=== PATIENT | male | born 1940 | race Caucasian/White ===

== ENCOUNTER 2019-07-04 14:49 | Observation (INO) ==
[2019-07-04] MEDS ORDERED: CLINDAMYCIN INJ 900 MG in PREMIX 1 EACH IV STA (16:22)
[2019-07-04] MEDS ORDERED: CLINDAMYCIN INJ 50 ML IV ONE (16:47)
[2019-07-04 16:55] LABS: Basophils # 0.1 10*3/uL (0.0-0.2); Basophils % 0.6 % (0.0-0.8); Eosinophils # 0.1 10*3/uL (0.0-0.87); Eosinophils % 1.6 % (0.00-10.9); Hematocrit 37.3 VOL% (42.0-52.0); Hemoglobin 11.9 GM/DL (14.0-18.0); Immature Granulocytes % 0.4 %; Immature Granulocytes Absolute 0.03 #; Lymphocytes # 1.2 10*3/uL (1.4-4.0); Lymphocytes % 14.7 % (21.2-54.2); Mean Corpuscular HGB Conc 31.9 GM/DL (32-36); Mean Corpuscular Volume 100.3 FL (87-102); Mean Platelet Volume 10.7 FL (9.6-12.0); Monocytes % 6.1 % (1.7-12.7); Neutrophils % 76.6 % (38.7-73.9); Platelet Count 228 T/CUMM (130-400); Red Blood Count 3.72 MC/CUMM (3.8-5.5); Red Cell Distribution Width 13.8 % (9.3-17.3); White Blood Count 8.1 T/CUMM (4-12)
[2019-07-04 17:06] LABS: INR 0.9; PT Patient Result 10.3 SECS (9.6-12.2); Partial Thromboplastin Time 26.2 SECS (20.8-36.0)
[2019-07-04 18:00] LABS: Sedimentation Rate-Westergren 62 MM/HR (0-20)
[2019-07-04 18:09] LABS: Albumin 2.9 G/DL (3.4-5.0); Bilirubin,Total 1.1 MG/DL (0.2-1.0); Calcium 9.2 MG/DL (8.5-10.1); Osmolality,Calculated 277.3 MOS/KG (273-304); Total Protein 6.8 G/DL (6.4-8.3)
[2019-07-04] MEDS ORDERED: ACETAMINOPHEN 325 MG TABLET PO PRN (20:39)
[2019-07-04] MEDS ORDERED: DOCUSATE SODIUM 100 MG CAPSULE PO PRN (20:39)
[2019-07-04] MEDS ORDERED: LACTULOSE 20 GM/30 ML UDCUP PO PRN (20:39)
[2019-07-04] MEDS ORDERED: ONDANSETRON 4 MG/2 ML VIAL IV PRN (20:39)
[2019-07-04] MEDS ORDERED: AMMONIA INHALANT 1 EACH AMP INH ONE (20:56)
[2019-07-04] MEDS ORDERED: IMIPRAMINE 50 MG TABLET PO SCH (21:00)
[2019-07-04] MEDS: APIXABAN 5 MG TABLET PO SCH (22:57)
[2019-07-04] MEDS: OXYBUTYNIN XL 15 MG TABLET PO SCH (22:57)
[2019-07-04] MEDS: IMIPRAMINE 25 MG TABLET PO SCH (22:58)
[2019-07-04] MEDS: ceFAZolin 1,000 MG in SYRINGE 1 EACH IV SCH (22:59)
[2019-07-04] MEDS: OFLOXACIN 0.3% OPH SOLN 5 ML BOTTLE BOTH EYES SCH (23:02)
[2019-07-04] MEDS: prednisoLONE ACETATE 1% OPH SUSP 5 ML BOTTLE BOTH EYES SCH (23:02)
[2019-07-04] MEDS: BRIMONIDINE/TIMOLOL OPH SOLN 5 ML BOTTLE LEFT EYE SCH (23:02)
[2019-07-04] MEDS: ATROPINE 1 % OPH SOLN 5 ML BOTTLE BOTH EYES SCH (23:02)
[2019-07-04] MEDS: TEMAZEPAM 15 MG CAPSULE PO SCH (23:03)
[2019-07-05 05:26] LABS: Basophils # 0.1 10*3/uL (0.0-0.2); Basophils % 1.2 % (0.0-0.8); Eosinophils # 0.2 10*3/uL (0.0-0.87); Hematocrit 37.5 VOL% (42.0-52.0); Hemoglobin 11.6 GM/DL (14.0-18.0); Immature Granulocytes % 0.3 %; Immature Granulocytes Absolute 0.02 #; Lymphocytes # 1.1 10*3/uL (1.4-4.0); Lymphocytes % 19.2 % (21.2-54.2); Mean Corpuscular HGB Conc 30.9 GM/DL (32-36); Mean Corpuscular Volume 103.6 FL (87-102); Mean Platelet Volume 9.1 FL (9.6-12.0); Monocytes % 6.4 % (1.7-12.7); Neutrophils % 69.9 % (38.7-73.9); Platelet Count 237 T/CUMM (130-400); Red Blood Count 3.62 MC/CUMM (3.8-5.5); Red Cell Distribution Width 13.2 % (9.3-17.3)
[2019-07-05 06:10] LABS: Vitamin B12 1230 PG/ML (211-911)
[2019-07-05] MEDS: ceFAZolin 1,000 MG in SYRINGE 1 EACH IV SCH ×3 (06:10→22:56)
[2019-07-05 06:13] LABS: % Iron Saturation 18.6 % (18-50); Ferritin 210.9 ng/ml (26-388)
[2019-07-05 06:30] LABS: Parathyroid Hormone Intact 54.7 PG/ML (18.4-80.1)
[2019-07-05 06:34] LABS: Sedimentation Rate-Westergren 78 MM/HR (0-20)
[2019-07-05] MEDS: PANTOPRAZOLE 40 MG TABLET PO SCH (09:19)
[2019-07-05] MEDS: OXYBUTYNIN XL 15 MG TABLET PO SCH ×2 (09:19→20:54)
[2019-07-05] MEDS: APIXABAN 5 MG TABLET PO SCH ×2 (09:20→20:54)
[2019-07-05] MEDS: OFLOXACIN 0.3% OPH SOLN 5 ML BOTTLE BOTH EYES SCH ×4 (09:21→20:55)
[2019-07-05] MEDS: prednisoLONE ACETATE 1% OPH SUSP 5 ML BOTTLE BOTH EYES SCH ×4 (09:21→20:55)
[2019-07-05] MEDS: ATROPINE 1 % OPH SOLN 5 ML BOTTLE BOTH EYES SCH ×4 (09:22→20:55)
[2019-07-05] MEDS: BRIMONIDINE/TIMOLOL OPH SOLN 5 ML BOTTLE LEFT EYE SCH ×2 (09:23→20:55)
[2019-07-05 10:44] LABS: Hemoglobin A1 (Alkaline) 96.6 % (96.5-98.5); Hemoglobin A2 (Alkaline) 3.4 % (1.5-3.5)
[2019-07-05] MEDS ORDERED: SKIN HEALING OINT (AQUAPHOR) 50 GM TUBE TOP PRN (14:40)
[2019-07-05] MEDS: IMIPRAMINE 25 MG TABLET PO SCH (20:54)
[2019-07-05] MEDS: TEMAZEPAM 15 MG CAPSULE PO SCH (22:56)
[2019-07-06] MEDS: ceFAZolin 1,000 MG in SYRINGE 1 EACH IV SCH ×2 (05:55→14:36)
[2019-07-06] MEDS: OFLOXACIN 0.3% OPH SOLN 5 ML BOTTLE BOTH EYES SCH ×2 (10:14→14:03)
[2019-07-06] MEDS: APIXABAN 5 MG TABLET PO SCH (10:15)
[2019-07-06] MEDS: BRIMONIDINE/TIMOLOL OPH SOLN 5 ML BOTTLE LEFT EYE SCH (10:15)
[2019-07-06] MEDS: ATROPINE 1 % OPH SOLN 5 ML BOTTLE BOTH EYES SCH ×2 (10:15→14:03)
[2019-07-06] MEDS: prednisoLONE ACETATE 1% OPH SUSP 5 ML BOTTLE BOTH EYES SCH ×2 (10:15→14:03)
[2019-07-06] MEDS: PANTOPRAZOLE 40 MG TABLET PO SCH (10:20)
[2019-07-06] MEDS: OXYBUTYNIN XL 15 MG TABLET PO SCH (12:04)
[2019-07-06 16:21] VITALS: BP 133/78
[2019-07-06] MEDS ORDERED: APIXABAN 5 MG TABLET PO SCH (21:00)
[2019-07-06] MEDS ORDERED: cephALEXin 500 MG CAPSULE PO SCH (21:00)
== END 2019-07-06 17:45 | disposition home or self-care (01) ==
LOC: N.ED 14:49 → N.EDINP 14:49 → N.4E 21:19
PROVIDERS: ADMIT Hospitalist; ATTEND Hospitalist

== ENCOUNTER 2019-08-31 08:55 | Inpatient (IN) ==
[2019-08-31] MEDS ORDERED: SODIUM CHLORIDE 0.9% 1,000 ML IV STA (09:14)
[2019-08-31 09:43] LABS: PT Patient Result 10.6 SECS (9.6-12.2)
[2019-08-31 09:57] LABS: Basophils % 0.3 % (0.0-0.8); Eosinophils % 0.2 % (0.00-10.9); Hematocrit 34.8 VOL% (42.0-52.0); Hemoglobin 11.2 GM/DL (14.0-18.0); Immature Granulocytes % 0.6 %; Immature Granulocytes Absolute 0.08 #; Lymphocytes # 1.4 10*3/uL (1.4-4.0); Lymphocytes % 10.2 % (21.2-54.2); Mean Corpuscular HGB Conc 32.2 GM/DL (32-36); Mean Corpuscular Volume 98.6 FL (87-102); Mean Platelet Volume 9.8 FL (9.6-12.0); Monocytes % 8.6 % (1.7-12.7); Neutrophils % 80.1 % (38.7-73.9); Platelet Count 207 T/CUMM (130-400); Red Blood Count 3.53 MC/CUMM (3.8-5.5); Red Cell Distribution Width 13.5 % (9.3-17.3); White Blood Count 14.2 T/CUMM (4-12)
[2019-08-31 10:09] LABS: Alanine Aminotransferase 31 U/L (16-61); Alkaline Phosphatase 443 U/L (45-117); Amylase 22 U/L (25-115); Aspartate Amino Transferase 35 U/L (0-37); Blood Urea Nitrogen 31 MG/DL (7-18); Calcium 9.2 MG/DL (8.5-10.1); Estimated Glom Filtration Rate 96 ML/MIN; Free T4 (Free Thyroxine) 1.54 NG/DL (0.76-1.46); Glucose 110 MG/DL (74-106); Osmolality,Calculated 275.2 MOS/KG (273-304); Total Protein 7.2 G/DL (6.4-8.3); Troponin I < 0.015 NG/ML (0.00-0.045)
[2019-08-31] MEDS ORDERED: CLINDAMYCIN INJ 900 MG in PREMIX 1 EACH IV STA (10:17)
[2019-08-31 10:23] LABS: Apearance,Urine Slightly Hazy (Clear); Bacteria,Urine Many /HPF (Few); Bilirubin,Urine Negative (Negative); Blood, Urine Negative (Negative); Glucose,Urine (UA) Negative (Negative); Ketones,Urine 20 mg/dL (Negative); Mucus,Urine Occasional /LPF (Occasional); Nitrite,Urine Negative (Negative); Protein,Urine Negative; Urine Color Amber (Yellow); Urine Specific Gravity 1.019 (1.001-1.035); WBC,Urine 1 /HPF (0-6)
[2019-08-31 10:44] LABS: Barbiturates Screen,Urine Negative (Negative); Benzodiazepines Screen,Urine Positive (Negative); Cannabinoid Screen,Urine Negative (Negative); Opiate Screen,Urine Negative (Negative); Phencyclidine Screen,Urine Negative (Negative)
[2019-08-31 11:01] LABS: Sedimentation Rate-Westergren 88 MM/HR (0-20)
[2019-08-31] MEDS ORDERED: ONDANSETRON 4 MG/2 ML VIAL IV PRN (11:51)
[2019-08-31] MEDS ORDERED: LACTULOSE 20 GM/30 ML UDCUP PO PRN (11:51)
[2019-08-31] MEDS ORDERED: ACETAMINOPHEN 325 MG TABLET PO PRN (11:51)
[2019-08-31 12:36] LABS: Risk Ratio 3.42; VLDL CHOLESTEROL 26.4 MG/DL
[2019-08-31] MEDS: SODIUM CHLORIDE 0.9% 1,000 ML IV SCH ×2 (13:45→23:59)
[2019-08-31] MEDS: ENOXAPARIN 40 MG/0.4 ML SYRINGE SUBCUT SCH (13:45)
[2019-08-31] MEDS: CLINDAMYCIN INJ 600 MG in PREMIX 1 EACH IV SCH ×2 (16:07→23:28)
[2019-08-31] MEDS: TEMAZEPAM 15 MG CAPSULE PO SCH (20:57)
[2019-08-31] MEDS: OXYBUTYNIN XL 15 MG TABLET PO SCH (20:57)
[2019-08-31] MEDS: IMIPRAMINE 25 MG TABLET PO SCH (20:57)
[2019-08-31] MEDS: ursodioL 300 MG CAPSULE PO SCH (20:57)
[2019-09-01 06:27] LABS: Basophils % 0.4 % (0.0-0.8); Eosinophils # 0.1 10*3/uL (0.0-0.87); Eosinophils % 1.3 % (0.00-10.9); Hemoglobin 7.8 GM/DL (14.0-18.0); Immature Granulocytes % 0.5 %; Immature Granulocytes Absolute 0.04 #; Lymphocytes # 1.6 10*3/uL (1.4-4.0); Lymphocytes % 19.4 % (21.2-54.2); Mean Corpuscular HGB Conc 32.5 GM/DL (32-36); Mean Platelet Volume 10.1 FL (9.6-12.0); Neutrophils % 65.4 % (38.7-73.9); Platelet Count 162 T/CUMM (130-400); Red Blood Count 2.45 MC/CUMM (3.8-5.5); Red Cell Distribution Width 13.7 % (9.3-17.3); White Blood Count 8.3 T/CUMM (4-12)
[2019-09-01 07:07] LABS: Albumin 2.1 G/DL (3.4-5.0); Bilirubin,Total 1.1 MG/DL (0.2-1.0); Calcium 7.9 MG/DL (8.5-10.1); Osmolality,Calculated 275.8 MOS/KG (273-304); Total Protein 5.4 G/DL (6.4-8.3)
[2019-09-01] MEDS ORDERED: SODIUM CHLORIDE 0.9% 1,000 ML IV PRN (08:16)
[2019-09-01] MEDS: BRIMONIDINE/TIMOLOL OPH SOLN 5 ML BOTTLE LEFT EYE SCH ×3 (08:26→20:29)
[2019-09-01] MEDS: CLINDAMYCIN INJ 600 MG in PREMIX 1 EACH IV SCH ×3 (08:46→23:35)
[2019-09-01] MEDS: PANTOPRAZOLE 40 MG TABLET PO SCH (08:47)
[2019-09-01] MEDS: ursodioL 300 MG CAPSULE PO SCH ×2 (08:47→20:30)
[2019-09-01] MEDS: OXYBUTYNIN XL 15 MG TABLET PO SCH ×2 (08:47→20:30)
[2019-09-01] MEDS: MULTIVITAMIN (CENTRUM) TABLET PO SCH (08:47)
[2019-09-01] MEDS: SODIUM CHLORIDE 0.9% 1,000 ML IV SCH ×2 (08:51→20:30)
[2019-09-01] MEDS: ENOXAPARIN 40 MG/0.4 ML SYRINGE SUBCUT SCH (12:37)
[2019-09-01 18:07] LABS: Hematocrit 35.2 VOL% (42.0-52.0)
[2019-09-01 18:13] LABS: Hemoglobin 11.5 GM/DL (14.0-18.0)
[2019-09-01] MEDS: IMIPRAMINE 25 MG TABLET PO SCH (20:30)
[2019-09-01] MEDS: TEMAZEPAM 15 MG CAPSULE PO SCH (22:17)
[2019-09-02 05:17] LABS: Basophils % 0.6 % (0.0-0.8); Eosinophils # 0.2 10*3/uL (0.0-0.87); Hematocrit 30.3 VOL% (42.0-52.0); Immature Granulocytes % 0.4 %; Immature Granulocytes Absolute 0.02 #; Lymphocytes # 1.2 10*3/uL (1.4-4.0); Lymphocytes % 22.4 % (21.2-54.2); Mean Corpuscular Volume 94.4 FL (87-102); Monocytes % 11.4 % (1.7-12.7); Neutrophils % 61.2 % (38.7-73.9); Platelet Count 126 T/CUMM (130-400); Red Blood Count 3.21 MC/CUMM (3.8-5.5); Red Cell Distribution Width 14.7 % (9.3-17.3); White Blood Count 5.3 T/CUMM (4-12)
[2019-09-02 05:47] LABS: Albumin 2.2 G/DL (3.4-5.0); Calcium 8.1 MG/DL (8.5-10.1); Osmolality,Calculated 281.3 MOS/KG (273-304); Total Protein 5.5 G/DL (6.4-8.3)
[2019-09-02 05:48] LABS: % Iron Saturation 25.6 % (18-50); Ferritin 200.3 ng/ml (26-388)
[2019-09-02 06:25] LABS: Sedimentation Rate-Westergren 64 MM/HR (0-20)
[2019-09-02] MEDS: SODIUM CHLORIDE 0.9% 1,000 ML IV SCH ×3 (06:31→23:23)
[2019-09-02] MEDS: POTASSIUM CHLORIDE 20 MEQ TABLET PO PRN ×3 (08:06→13:23)
[2019-09-02] MEDS: CLINDAMYCIN INJ 600 MG in PREMIX 1 EACH IV SCH ×3 (08:07→23:21)
[2019-09-02 08:57] LABS: Hemoglobin A1 (Alkaline) 97.2 % (96.5-98.5); Hemoglobin A2 (Alkaline) 2.8 % (1.5-3.5)
[2019-09-02] MEDS: OXYBUTYNIN XL 15 MG TABLET PO SCH ×2 (10:07→20:36)
[2019-09-02] MEDS: PANTOPRAZOLE 40 MG TABLET PO SCH ×2 (10:07→20:36)
[2019-09-02] MEDS: ursodioL 300 MG CAPSULE PO SCH ×2 (10:07→20:36)
[2019-09-02] MEDS: MULTIVITAMIN (CENTRUM) TABLET PO SCH (10:08)
[2019-09-02] MEDS: BRIMONIDINE/TIMOLOL OPH SOLN 5 ML BOTTLE LEFT EYE SCH ×2 (10:09→20:36)
[2019-09-02] MEDS: ENOXAPARIN 40 MG/0.4 ML SYRINGE SUBCUT SCH (13:24)
[2019-09-02] MEDS: MENTHOL/ZINC OXIDE OINT 71 GM JAR TOP SCH ×2 (13:25→20:36)
[2019-09-02 18:20] LABS: Folate 13.6 NG/ML (5.4-24.0); Vitamin B12 1093 PG/ML (211-911)
[2019-09-02] MEDS ORDERED: BISACODYL 10 MG SUPP RECTAL ONE (20:16)
[2019-09-02] MEDS: IMIPRAMINE 25 MG TABLET PO SCH (20:35)
[2019-09-02] MEDS ORDERED: POLYETHYLENE GLYCOL POWDER 17 GM PACK PO SCH (21:00)
[2019-09-02] MEDS: TEMAZEPAM 15 MG CAPSULE PO SCH (23:02)
[2019-09-03 05:52] LABS: Basophils % 0.5 % (0.0-0.8); Eosinophils # 0.2 10*3/uL (0.0-0.87); Eosinophils % 2.9 % (0.00-10.9); Hematocrit 30.9 VOL% (42.0-52.0); Hemoglobin 10.1 GM/DL (14.0-18.0); Immature Granulocytes % 0.8 %; Immature Granulocytes Absolute 0.05 #; Lymphocytes # 1.2 10*3/uL (1.4-4.0); Lymphocytes % 18.2 % (21.2-54.2); Mean Corpuscular HGB Conc 32.7 GM/DL (32-36); Mean Corpuscular Volume 96.9 FL (87-102); Mean Platelet Volume 9.8 FL (9.6-12.0); Monocytes % 9.2 % (1.7-12.7); Neutrophils % 68.4 % (38.7-73.9); Platelet Count 149 T/CUMM (130-400); Red Blood Count 3.19 MC/CUMM (3.8-5.5); Red Cell Distribution Width 14.6 % (9.3-17.3); White Blood Count 6.5 T/CUMM (4-12)
[2019-09-03 06:11] LABS: Albumin 1.9 G/DL (3.4-5.0); Bilirubin,Total 1.9 MG/DL (0.2-1.0); Calcium 8.2 MG/DL (8.5-10.1); Osmolality,Calculated 270.8 MOS/KG (273-304); Total Protein 5.1 G/DL (6.4-8.3)
[2019-09-03] MEDS ORDERED: TUBERCULIN SKIN TEST 0.1 ML SYRINGE INTRADERM ONE (09:57)
[2019-09-03] MEDS: OXYBUTYNIN XL 15 MG TABLET PO SCH ×2 (10:05→21:04)
[2019-09-03] MEDS: MULTIVITAMIN (CENTRUM) TABLET PO SCH (10:05)
[2019-09-03] MEDS: FERROUS SULFATE 325 MG TABLET PO SCH (10:05)
[2019-09-03] MEDS: CLINDAMYCIN INJ 600 MG in PREMIX 1 EACH IV SCH (10:06)
[2019-09-03] MEDS: PANTOPRAZOLE 40 MG TABLET PO SCH ×2 (10:06→21:04)
[2019-09-03] MEDS: ursodioL 300 MG CAPSULE PO SCH ×2 (10:06→21:05)
[2019-09-03] MEDS: BRIMONIDINE/TIMOLOL OPH SOLN 5 ML BOTTLE LEFT EYE SCH ×2 (10:09→21:05)
[2019-09-03] MEDS: MENTHOL/ZINC OXIDE OINT 71 GM JAR TOP SCH ×2 (10:09→21:05)
[2019-09-03] MEDS: PIPERACILLIN/TAZOBACTAM 3,375 MG in SODIUM CHLORIDE 0.9% 100 ML IV SCH ×2 (12:59→18:35)
[2019-09-03] MEDS: IMIPRAMINE 25 MG TABLET PO SCH (21:04)
[2019-09-03] MEDS: TEMAZEPAM 15 MG CAPSULE PO SCH (23:00)
[2019-09-04] MEDS: SODIUM CHLORIDE 0.9% 1,000 ML IV SCH ×3 (00:01→09:10)
[2019-09-04] MEDS: PIPERACILLIN/TAZOBACTAM 3,375 MG in SODIUM CHLORIDE 0.9% 100 ML IV SCH ×2 (02:26→09:11)
[2019-09-04 04:43] LABS: Basophils % 0.3 % (0.0-0.8); Eosinophils # 0.2 10*3/uL (0.0-0.87); Eosinophils % 3.2 % (0.00-10.9); Hemoglobin 10.4 GM/DL (14.0-18.0); Immature Granulocytes % 0.4 %; Immature Granulocytes Absolute 0.03 #; Lymphocytes # 1.3 10*3/uL (1.4-4.0); Lymphocytes % 17.6 % (21.2-54.2); Mean Corpuscular HGB Conc 32.5 GM/DL (32-36); Mean Corpuscular Volume 96.7 FL (87-102); Monocytes % 11.7 % (1.7-12.7); Neutrophils % 66.8 % (38.7-73.9); Platelet Count 194 T/CUMM (130-400); Red Blood Count 3.31 MC/CUMM (3.8-5.5); Red Cell Distribution Width 14.7 % (9.3-17.3); White Blood Count 7.5 T/CUMM (4-12)
[2019-09-04 05:14] LABS: Albumin 1.8 G/DL (3.4-5.0); Bilirubin,Total 1.5 MG/DL (0.2-1.0); Calcium 8.2 MG/DL (8.5-10.1); Osmolality,Calculated 271.8 MOS/KG (273-304); Total Protein 5.3 G/DL (6.4-8.3)
[2019-09-04] MEDS: PANTOPRAZOLE 40 MG TABLET PO SCH (09:10)
[2019-09-04] MEDS: MENTHOL/ZINC OXIDE OINT 71 GM JAR TOP SCH (09:10)
[2019-09-04] MEDS: FERROUS SULFATE 325 MG TABLET PO SCH (09:10)
[2019-09-04] MEDS: OXYBUTYNIN XL 15 MG TABLET PO SCH (09:10)
[2019-09-04] MEDS: MULTIVITAMIN (CENTRUM) TABLET PO SCH (09:10)
[2019-09-04] MEDS: ursodioL 300 MG CAPSULE PO SCH (09:10)
[2019-09-04] MEDS: BRIMONIDINE/TIMOLOL OPH SOLN 5 ML BOTTLE LEFT EYE SCH (09:12)
[2019-09-04 10:07] VITALS: BP 106/58
== END 2019-09-04 11:15 | DRG 871 ==
LOC: EDUNIT# → EDBD → N.ED 08:55 → SUATTDRO 11:51 → N.EDINP 11:51 → N.5E 13:43
PROVIDERS: ADMIT Hospitalist; ATTEND Internal Medicine Cardiovascular Disease

== ENCOUNTER 2019-09-09 13:58 | Inpatient (IN) ==
[2019-09-09] MEDS ORDERED: cefTRIAXone 1,000 MG in SODIUM CHLORIDE 0.9% 100 ML IV STA (16:28)
[2019-09-09 17:26] LABS: Basophils % 0.5 % (0.0-0.8); Eosinophils # 0.3 10*3/uL (0.0-0.87); Eosinophils % 3.2 % (0.00-10.9); Hematocrit 32.8 VOL% (42.0-52.0); Hemoglobin 10.3 GM/DL (14.0-18.0); Immature Granulocytes % 0.8 %; Immature Granulocytes Absolute 0.07 #; Lymphocytes # 1.2 10*3/uL (1.4-4.0); Lymphocytes % 13.6 % (21.2-54.2); Mean Corpuscular HGB Conc 31.4 GM/DL (32-36); Mean Corpuscular Volume 100.3 FL (87-102); Monocytes % 8.3 % (1.7-12.7); Neutrophils % 73.6 % (38.7-73.9); Platelet Count 367 T/CUMM (130-400); Red Blood Count 3.27 MC/CUMM (3.8-5.5); Red Cell Distribution Width 14.9 % (9.3-17.3); White Blood Count 8.5 T/CUMM (4-12)
[2019-09-09 17:43] LABS: Albumin 2.3 G/DL (3.4-5.0); Bilirubin,Total 2.2 MG/DL (0.2-1.0); Total Protein 5.7 G/DL (6.4-8.3)
[2019-09-09] MEDS: PIPERACILLIN/TAZOBACTAM 3,375 MG in SODIUM CHLORIDE 0.9% 100 ML IV SCH (22:59)
[2019-09-09] MEDS: ENOXAPARIN 60 MG/0.6 ML SYRINGE SUBCUT SCH (22:59)
[2019-09-10] MEDS ORDERED: VANCOMYCIN INJ 1,000 MG in SODIUM CHLORIDE 0.9% 250 ML IV SCH (02:00)
[2019-09-10] MEDS ORDERED: TEMAZEPAM 15 MG CAPSULE PO SCH (02:00)
[2019-09-10 04:56] LABS: Basophils % 0.5 % (0.0-0.8); Eosinophils # 0.2 10*3/uL (0.0-0.87); Eosinophils % 2.8 % (0.00-10.9); Hematocrit 30.1 VOL% (42.0-52.0); Hemoglobin 9.3 GM/DL (14.0-18.0); Immature Granulocytes % 0.8 %; Immature Granulocytes Absolute 0.05 #; Lymphocytes # 1.2 10*3/uL (1.4-4.0); Lymphocytes % 18.7 % (21.2-54.2); Mean Corpuscular HGB Conc 30.9 GM/DL (32-36); Mean Platelet Volume 9.8 FL (9.6-12.0); Neutrophils % 68.2 % (38.7-73.9); Platelet Count 223 T/CUMM (130-400); Red Blood Count 2.95 MC/CUMM (3.8-5.5); White Blood Count 6.5 T/CUMM (4-12)
[2019-09-10 05:35] LABS: Calcium 8.1 MG/DL (8.5-10.1); Osmolality,Calculated 277.5 MOS/KG (273-304)
[2019-09-10] MEDS: PIPERACILLIN/TAZOBACTAM 3,375 MG in SODIUM CHLORIDE 0.9% 100 ML IV SCH (05:39)
[2019-09-10] MEDS ORDERED: PANTOPRAZOLE 40 MG TABLET PO SCH ×2 (06:30→21:00)
[2019-09-10] MEDS: ENOXAPARIN 60 MG/0.6 ML SYRINGE SUBCUT SCH (08:38)
[2019-09-10] MEDS ORDERED: MULTIVITAMIN (CENTRUM) TABLET PO SCH (09:00)
[2019-09-10] MEDS ORDERED: ACETAMINOPHEN 325 MG TABLET PO PRN (09:01)
[2019-09-10] MEDS ORDERED: APIXABAN 5 MG TABLET PO SCH ×2 (09:30→10:20)
[2019-09-10 11:26] VITALS: BP 100/43
[2019-09-10] MEDS ORDERED: MENTHOL/ZINC OXIDE OINT 71 GM JAR TOP SCH (13:00)
[2019-09-10] MEDS ORDERED: OXYBUTYNIN XL 15 MG TABLET PO SCH (21:00)
[2019-09-10] MEDS ORDERED: NON-FORMULARY MEDICATION (Temazepam 30 MG) PO SCH (21:00)
[2019-09-10] MEDS ORDERED: ursodioL 300 MG CAPSULE PO SCH (21:00)
[2019-09-10] MEDS ORDERED: BRIMONIDINE/TIMOLOL OPH SOLN 5 ML BOTTLE LEFT EYE SCH (21:00)
[2019-09-10] MEDS ORDERED: IMIPRAMINE 25 MG TABLET PO SCH (21:00)
== END 2019-09-10 12:52 | disposition home or self-care (01) | DRG 299 ==
LOC: N.ED 13:58 → N.EDINP 18:49 → N.3E 20:53
PROVIDERS: ADMIT Family Medicine; ATTEND Family Medicine

== ENCOUNTER 2019-09-11 17:49 | Inpatient (IN) ==
[2019-09-11] MEDS ORDERED: CLINDAMYCIN INJ 900 MG in PREMIX 1 EACH IV STA (18:21)
[2019-09-11] MEDS ORDERED: SODIUM CHLORIDE 0.9% 500 ML IV STA (18:21)
[2019-09-11 18:38] LABS: Basophils # 0.1 10*3/uL (0.0-0.2); Basophils % 0.6 % (0.0-0.8); Eosinophils # 0.2 10*3/uL (0.0-0.87); Eosinophils % 2.3 % (0.00-10.9); Hematocrit 29.6 VOL% (42.0-52.0); Hemoglobin 9.2 GM/DL (14.0-18.0); Immature Granulocytes % 0.7 %; Immature Granulocytes Absolute 0.06 #; Lymphocytes % 11.4 % (21.2-54.2); Mean Corpuscular HGB Conc 31.1 GM/DL (32-36); Mean Platelet Volume 8.9 FL (9.6-12.0); Monocytes % 6.4 % (1.7-12.7); Neutrophils % 78.6 % (38.7-73.9); Platelet Count 313 T/CUMM (130-400); Red Blood Count 2.96 MC/CUMM (3.8-5.5); Red Cell Distribution Width 15.5 % (9.3-17.3); White Blood Count 8.4 T/CUMM (4-12)
[2019-09-11 18:47] LABS: PT Patient Result 11.1 SECS (9.6-12.2)
[2019-09-11 19:02] LABS: Alanine Aminotransferase 21 U/L (16-61); Albumin 2.1 G/DL (3.4-5.0); Alkaline Phosphatase 411 U/L (45-117); Aspartate Amino Transferase 36 U/L (0-37); Blood Urea Nitrogen 10 MG/DL (7-18); Calcium 8.3 MG/DL (8.5-10.1); Estimated Glom Filtration Rate 173 ML/MIN; Glucose 98 MG/DL (74-106); Osmolality,Calculated 266.2 MOS/KG (273-304); Total Protein 5.8 G/DL (6.4-8.3); Troponin I < 0.015 NG/ML (0.00-0.045)
[2019-09-11 19:39] LABS: Apearance,Urine CLEAR (Clear); Bilirubin,Urine Negative (Negative); Blood, Urine Negative (Negative); Glucose,Urine (UA) Negative (Negative); Ketones,Urine Negative (Negative); Mucus,Urine Occasional /LPF (Occasional); Nitrite,Urine Negative (Negative); Protein,Urine Negative; RBC,Urine 3 /HPF (0-4); Squamous Epithelial Cell,Urine Occasional /HPF (0-10); Urine Color Yellow (Yellow); WBC,Urine 6 /HPF (0-6)
[2019-09-11] MEDS ORDERED: ACETAMINOPHEN 325 MG TABLET PO PRN (20:08)
[2019-09-11] MEDS ORDERED: ONDANSETRON 4 MG/2 ML VIAL IV PRN (20:08)
[2019-09-11] MEDS ORDERED: IMIPRAMINE 50 MG TABLET PO SCH (21:00)
[2019-09-11] MEDS: IMIPRAMINE 25 MG TABLET PO SCH (22:36)
[2019-09-11] MEDS: TEMAZEPAM 15 MG CAPSULE PO SCH (22:36)
[2019-09-11] MEDS: APIXABAN 5 MG TABLET PO SCH ×2 (22:36→22:37)
[2019-09-11] MEDS: PIPERACILLIN/TAZOBACTAM 3,375 MG in SODIUM CHLORIDE 0.9% 100 ML IV SCH (22:36)
[2019-09-11] MEDS: ursodioL 300 MG CAPSULE PO SCH (22:36)
[2019-09-11] MEDS: SODIUM CHLOR 0.9% KCL 20 MEQ 20 MEQ/1,000 ML BAG IV SCH (22:36)
[2019-09-11] MEDS: OXYBUTYNIN XL 15 MG TABLET PO SCH (22:36)
[2019-09-11] MEDS: BRIMONIDINE/TIMOLOL OPH SOLN 5 ML BOTTLE LEFT EYE SCH (22:37)
[2019-09-12] MEDS: PIPERACILLIN/TAZOBACTAM 3,375 MG in SODIUM CHLORIDE 0.9% 100 ML IV SCH ×2 (05:04→10:16)
[2019-09-12 06:08] LABS: Osmolality,Calculated 275.5 MOS/KG (273-304)
[2019-09-12 06:44] LABS: Basophils % 0.6 % (0.0-0.8); Eosinophils # 0.2 10*3/uL (0.0-0.87); Eosinophils % 3.7 % (0.00-10.9); Hematocrit 26.2 VOL% (42.0-52.0); Hemoglobin 8.1 GM/DL (14.0-18.0); Immature Granulocytes % 1.1 %; Immature Granulocytes Absolute 0.07 #; Mean Corpuscular HGB Conc 30.9 GM/DL (32-36); Mean Corpuscular Volume 100.8 FL (87-102); Mean Platelet Volume 8.9 FL (9.6-12.0); Monocytes % 8.5 % (1.7-12.7); Neutrophils % 70.1 % (38.7-73.9); Platelet Count 260 T/CUMM (130-400); Red Cell Distribution Width 15.7 % (9.3-17.3); White Blood Count 6.4 T/CUMM (4-12)
[2019-09-12] MEDS: ursodioL 300 MG CAPSULE PO SCH ×2 (10:12→21:39)
[2019-09-12] MEDS: MULTIVITAMIN (CENTRUM) TABLET PO SCH (10:12)
[2019-09-12] MEDS: OXYBUTYNIN XL 15 MG TABLET PO SCH ×2 (10:12→21:39)
[2019-09-12] MEDS: PANTOPRAZOLE 40 MG TABLET PO SCH (10:13)
[2019-09-12] MEDS: APIXABAN 5 MG TABLET PO SCH ×2 (10:13→21:38)
[2019-09-12] MEDS: BRIMONIDINE/TIMOLOL OPH SOLN 5 ML BOTTLE LEFT EYE SCH ×2 (10:13→21:45)
[2019-09-12] MEDS: SODIUM CHLOR 0.9% KCL 20 MEQ 20 MEQ/1,000 ML BAG IV SCH (12:01)
[2019-09-12] MEDS: cefTRIAXone 1,000 MG in SYRINGE 1 EACH IV SCH (15:03)
[2019-09-12] MEDS ORDERED: TUBERCULIN SKIN TEST 0.1 ML SYRINGE INTRADERM ONE (16:00)
[2019-09-12] MEDS: IMIPRAMINE 25 MG TABLET PO SCH (21:38)
[2019-09-12] MEDS: TEMAZEPAM 15 MG CAPSULE PO SCH (21:40)
[2019-09-12] MEDS: MENTHOL/ZINC OXIDE OINT 71 GM JAR TOP SCH (21:45)
[2019-09-13] MEDS: SODIUM CHLOR 0.9% KCL 20 MEQ 20 MEQ/1,000 ML BAG IV SCH (00:47)
[2019-09-13 06:30] LABS: Basophils % 0.3 % (0.0-0.8); Eosinophils # 0.2 10*3/uL (0.0-0.87); Eosinophils % 3.1 % (0.00-10.9); Hematocrit 25.8 VOL% (42.0-52.0); Hemoglobin 7.9 GM/DL (14.0-18.0); Immature Granulocytes % 1.1 %; Immature Granulocytes Absolute 0.07 #; Lymphocytes # 1.1 10*3/uL (1.4-4.0); Lymphocytes % 18.2 % (21.2-54.2); Mean Corpuscular HGB Conc 30.6 GM/DL (32-36); Mean Corpuscular Volume 100.4 FL (87-102); Mean Platelet Volume 9.2 FL (9.6-12.0); Monocytes % 8.5 % (1.7-12.7); Neutrophils % 68.8 % (38.7-73.9); Platelet Count 254 T/CUMM (130-400); Red Blood Count 2.57 MC/CUMM (3.8-5.5); Red Cell Distribution Width 15.5 % (9.3-17.3); White Blood Count 6.2 T/CUMM (4-12)
[2019-09-13 07:03] LABS: Albumin 1.7 G/DL (3.4-5.0); Bilirubin,Total 1.7 MG/DL (0.2-1.0); Calcium 7.8 MG/DL (8.5-10.1); Osmolality,Calculated 274.5 MOS/KG (273-304)
[2019-09-13] MEDS: MULTIVITAMIN (CENTRUM) TABLET PO SCH (08:58)
[2019-09-13] MEDS: ursodioL 300 MG CAPSULE PO SCH ×2 (08:59→16:15)
[2019-09-13] MEDS: PANTOPRAZOLE 40 MG TABLET PO SCH (08:59)
[2019-09-13] MEDS: OXYBUTYNIN XL 15 MG TABLET PO SCH ×2 (08:59→16:15)
[2019-09-13] MEDS: MENTHOL/ZINC OXIDE OINT 71 GM JAR TOP SCH ×2 (09:02→16:17)
[2019-09-13] MEDS: APIXABAN 5 MG TABLET PO SCH ×2 (09:02→16:16)
[2019-09-13] MEDS: BRIMONIDINE/TIMOLOL OPH SOLN 5 ML BOTTLE LEFT EYE SCH ×2 (09:02→16:17)
[2019-09-13 15:39] VITALS: BP 128/61
[2019-09-13] MEDS: cefTRIAXone 1,000 MG in SYRINGE 1 EACH IV SCH ×2 (16:03→16:14)
[2019-09-17] MEDS ORDERED: APIXABAN 5 MG TABLET PO SCH (21:00)
== END 2019-09-13 17:08 | DRG 602 ==
LOC: EDBD → EDUNIT# → N.ED 17:49 → N.EDINP 20:08 → SUATTDRO 20:08 → N.2E 21:11
PROVIDERS: ADMIT Family Medicine; ATTEND Internal Medicine

== ENCOUNTER 2020-06-15 11:06 | Inpatient (IN) ==
[2020-06-15 12:40] LABS: Lymphocytes # 1.2 10*3/uL (1.4-4.0); Monocytes % 7.5 % (1.7-12.7)
[2020-06-15 12:49] LABS: Basophils % 0.3 % (0.0-0.8); Eosinophils # 0.1 10*3/uL (0.0-0.87); Eosinophils % 1.1 % (0.00-10.9); Hematocrit 40.9 VOL% (42.0-52.0); Hemoglobin 13.5 GM/DL (14.0-18.0); Immature Granulocytes % 0.5 %; Immature Granulocytes Absolute 0.05 #; Lymphocytes % 13.2 % (21.2-54.2); Neutrophils % 77.4 % (38.7-73.9); Platelet Count 249 T/CUMM (130-400); Red Blood Count 4.26 MC/CUMM (3.8-5.5); Red Cell Distribution Width 14.7 % (9.3-17.3); White Blood Count 9.2 T/CUMM (4-12)
[2020-06-15 12:59] LABS: Albumin 2.5 G/DL (3.4-5.0); Calcium 9.8 MG/DL (8.5-10.1); Osmolality,Calculated 260.7 MOS/KG (273-304); Total Protein 7.1 G/DL (6.4-8.3)
[2020-06-15 13:02] LABS: Bilirubin,Total 14.4 MG/DL (0.2-1.0)
[2020-06-15 13:06] LABS: INR 1.4; PT Patient Result 14.4 SECS (9.8-11.9); Partial Thromboplastin Time 35.8 SECS (23.9-33.8)
[2020-06-15 13:11] LABS: Bacteria,Urine Many /HPF (Few); Bilirubin,Urine Small mg/dL (Negative); Blood, Urine Small mg/dL (Negative); Glucose,Urine (UA) Negative (Negative); Ketones,Urine Negative (Negative); Mucus,Urine Occasional /LPF (Occasional); Nitrite,Urine Negative (Negative); Protein,Urine Negative; Squamous Epithelial Cell,Urine Occasional /HPF (0-10); Urine Appearance CLEAR (Clear); Urine Color Amber (Yellow); Urine Specific Gravity 1.004 (1.001-1.035); WBC,Urine 9 /HPF (0-6)
[2020-06-15] MEDS ORDERED: SODIUM CHLORIDE 0.9% 1,000 ML IV STA (14:43)
[2020-06-15] MEDS ORDERED: DEXTROSE 50% 25 GM/50 ML VIAL IV PRN (15:33)
[2020-06-15] MEDS ORDERED: ONDANSETRON 4 MG/2 ML VIAL IV PRN (15:33)
[2020-06-15] MEDS ORDERED: GLUCAGON 1 MG VIAL IM PRN (15:33)
[2020-06-15] MEDS: PIPERACILLIN/TAZOBACTAM 3,375 MG in SODIUM CHLORIDE 0.9% 100 ML IV SCH (16:27)
[2020-06-16] MEDS: PIPERACILLIN/TAZOBACTAM 3,375 MG in SODIUM CHLORIDE 0.9% 100 ML IV SCH ×4 (01:21→23:09)
[2020-06-16 07:05] LABS: Basophils % 0.4 % (0.0-0.8); Eosinophils # 0.1 10*3/uL (0.0-0.87); Eosinophils % 1.9 % (0.00-10.9); Immature Granulocytes % 0.3 %; Immature Granulocytes Absolute 0.02 #; Lymphocytes # 1.1 10*3/uL (1.4-4.0); Lymphocytes % 14.5 % (21.2-54.2); Mean Corpuscular HGB Conc 32.4 GM/DL (32-36); Mean Corpuscular Volume 96.6 FL (87-102); Mean Platelet Volume 9.9 FL (9.6-12.0); Monocytes % 7.8 % (1.7-12.7); Neutrophils % 75.1 % (38.7-73.9); Platelet Count 198 T/CUMM (130-400); Red Blood Count 3.83 MC/CUMM (3.8-5.5); Red Cell Distribution Width 14.6 % (9.3-17.3); White Blood Count 7.3 T/CUMM (4-12)
[2020-06-16 07:20] LABS: Bilirubin,Total 10.8 MG/DL (0.2-1.0); Calcium 9.3 MG/DL (8.5-10.1); Total Protein 5.9 G/DL (6.4-8.3)
[2020-06-16] MEDS: PANTOPRAZOLE 40 MG TABLET PO SCH (09:18)
[2020-06-16] MEDS: POTASSIUM CHLORIDE 20 MEQ TABLET PO PRN ×4 (11:53→23:09)
[2020-06-16] MEDS: LATANOPROST 0.005% OPH SOLN 2.5 ML BOTTLE LEFT EYE SCH (21:12)
[2020-06-16] MEDS: BRIMONIDINE/TIMOLOL OPH SOLN 5 ML BOTTLE LEFT EYE SCH (21:12)
[2020-06-16] MEDS: OXYBUTYNIN XL 15 MG TABLET PO SCH (21:12)
[2020-06-17 06:03] LABS: PT Patient Result 11.2 SECS (9.8-11.9)
[2020-06-17] MEDS ORDERED: LACTATED RINGERS 1,000 ML IV SCH (08:00)
[2020-06-17] MEDS ORDERED: INDOMETHACIN SUPP 50 MG SUPP RECTAL ONE (08:00)
[2020-06-17 08:43] LABS: Basophils % 0.4 % (0.0-0.8); Eosinophils # 0.1 10*3/uL (0.0-0.87); Eosinophils % 1.8 % (0.00-10.9); Hematocrit 36.1 VOL% (42.0-52.0); Hemoglobin 11.8 GM/DL (14.0-18.0); Immature Granulocytes % 0.4 %; Immature Granulocytes Absolute 0.02 #; Lymphocytes # 0.7 10*3/uL (1.4-4.0); Lymphocytes % 14.7 % (21.2-54.2); Mean Corpuscular HGB Conc 32.7 GM/DL (32-36); Mean Corpuscular Volume 96.8 FL (87-102); Monocytes % 7.1 % (1.7-12.7); Neutrophils % 75.6 % (38.7-73.9); Platelet Count 173 T/CUMM (130-400); Red Blood Count 3.73 MC/CUMM (3.8-5.5); Red Cell Distribution Width 14.6 % (9.3-17.3)
[2020-06-17] MEDS: PIPERACILLIN/TAZOBACTAM 3,375 MG in SODIUM CHLORIDE 0.9% 100 ML IV SCH (08:50)
[2020-06-17] MEDS: BRIMONIDINE/TIMOLOL OPH SOLN 5 ML BOTTLE LEFT EYE SCH ×2 (08:51→21:53)
[2020-06-17] MEDS ORDERED: ONDANSETRON 4 MG/2 ML VIAL ONE (09:00)
[2020-06-17] MEDS ORDERED: LIDOCAINE 2% 5 ML VIAL ONE (09:00)
[2020-06-17] MEDS ORDERED: GLYCOPYRROLATE 0.4 MG/2 ML VIAL ONE (09:00)
[2020-06-17] MEDS ORDERED: ROCURONIUM 100 MG/10 ML VIAL IV ONE (09:00)
[2020-06-17] MEDS ORDERED: PHENYLEPHRINE 1 MG/10 ML SYRINGE IV ONE (09:00)
[2020-06-17] MEDS ORDERED: propofoL 200 MG/20 ML VIAL IV ONE (09:00)
[2020-06-17 09:07] LABS: Bilirubin,Total 5.5 MG/DL (0.2-1.0); Calcium 8.8 MG/DL (8.5-10.1); Osmolality,Calculated 273.7 MOS/KG (273-304); Total Protein 6.2 G/DL (6.4-8.3)
[2020-06-17] MEDS ORDERED: fentaNYL 100 MCG/2 ML VIAL ONE (11:21)
[2020-06-17] MEDS ORDERED: SUGAMMADEX 200 MG/2 ML VIAL IV ONE (11:22)
[2020-06-17] MEDS ORDERED: ePHEDrine 50 MG/ML VIAL ONE (12:02)
[2020-06-17] MEDS ORDERED: cefTRIAXone 2,000 MG in SODIUM CHLORIDE 0.9% 100 ML IV SCH (12:30)
[2020-06-17] MEDS: ceFAZolin 1,000 MG in SYRINGE 1 EACH IV SCH (19:55)
[2020-06-17] MEDS: PANTOPRAZOLE 40 MG TABLET PO SCH (19:56)
[2020-06-17] MEDS: IMIPRAMINE 25 MG TABLET PO SCH (19:56)
[2020-06-17] MEDS: OXYBUTYNIN XL 15 MG TABLET PO SCH ×2 (19:56→22:27)
[2020-06-17] MEDS: LATANOPROST 0.005% OPH SOLN 2.5 ML BOTTLE LEFT EYE SCH (21:53)
[2020-06-18 06:00] LABS: Basophils % 0.6 % (0.0-0.8); Eosinophils # 0.1 10*3/uL (0.0-0.87); Eosinophils % 2.6 % (0.00-10.9); Hematocrit 37.7 VOL% (42.0-52.0); Hemoglobin 12.2 GM/DL (14.0-18.0); Immature Granulocytes % 0.4 %; Immature Granulocytes Absolute 0.02 #; Lymphocytes # 0.9 10*3/uL (1.4-4.0); Mean Corpuscular HGB Conc 32.4 GM/DL (32-36); Mean Corpuscular Volume 98.2 FL (87-102); Mean Platelet Volume 10.6 FL (9.6-12.0); Monocytes % 9.7 % (1.7-12.7); Neutrophils % 66.7 % (38.7-73.9); Platelet Count 159 T/CUMM (130-400); Red Blood Count 3.84 MC/CUMM (3.8-5.5); Red Cell Distribution Width 14.5 % (9.3-17.3); White Blood Count 4.6 T/CUMM (4-12)
[2020-06-18] MEDS: ceFAZolin 1,000 MG in SYRINGE 1 EACH IV SCH (06:00)
[2020-06-18 06:23] LABS: Albumin 2.1 G/DL (3.4-5.0); Bilirubin,Total 5.9 MG/DL (0.2-1.0); Calcium 9.2 MG/DL (8.5-10.1); Total Protein 6.6 G/DL (6.4-8.3)
[2020-06-18] MEDS: PANTOPRAZOLE 40 MG TABLET PO SCH (08:40)
[2020-06-18] MEDS: OXYBUTYNIN XL 15 MG TABLET PO SCH (08:40)
[2020-06-18] MEDS: IMIPRAMINE 25 MG TABLET PO SCH (08:40)
[2020-06-18] MEDS: BRIMONIDINE/TIMOLOL OPH SOLN 5 ML BOTTLE LEFT EYE SCH (09:31)
[2020-06-18 11:43] VITALS: BP 94/47
[2020-06-18] MEDS ORDERED: SODIUM CHLORIDE 0.9% 500 ML IV ONE (13:16)
[2020-06-18] MEDS ORDERED: CEFUROXIME 250 MG TABLET PO SCH (21:00)
== END 2020-06-18 15:53 | disposition home or self-care (01) | DRG 444 ==
LOC: N.ED 11:06 → SUATTDRO 15:33 → N.EDINP 15:33 → N.3E 17:10
PROVIDERS: ADMIT Internal Medicine; ATTEND Internal Medicine

== ENCOUNTER 2021-07-13 20:10 | Inpatient (IN) ==
[2021-07-13] MEDS ORDERED: ONDANSETRON 4 MG/2 ML VIAL IV STA (20:46)
[2021-07-13] MEDS ORDERED: DIPH/TET/ACEL PERT BOOSTER VACCINE 0.5 ML VIAL IM ONE (20:46)
[2021-07-13 22:39] LABS: Alanine Aminotransferase 14 U/L (16-61); Albumin 2.8 G/DL (3.4-5.0); Alkaline Phosphatase 115 U/L (45-117); Aspartate Amino Transferase 17 U/L (0-37); Blood Urea Nitrogen 7 MG/DL (7-18); Calcium 8.7 MG/DL (8.5-10.1); Carbon Dioxide 22 MMOL/L (21-32); Estimated Glom Filtration Rate 134 ML/MIN; Glucose 110 MG/DL (74-106); Osmolality,Calculated 277.4 MOS/KG (273-304); Potassium 3.7 MMOL/L (3.5-5.1); Sodium 140 MMOL/L (136-145); Total Protein 5.8 G/DL (6.4-8.2)
[2021-07-13 22:50] LABS: Basophils % 0.4 % (0.0-0.8); Eosinophils # 0.2 10*3/uL (0.0-0.87); Eosinophils % 1.7 % (0.00-10.9); Hematocrit 32.5 VOL% (42.0-52.0); Immature Granulocytes % 0.4 %; Immature Granulocytes Absolute 0.04 #; Lymphocytes # 1.6 10*3/uL (1.4-4.0); Lymphocytes % 16.7 % (21.2-54.2); Mean Corpuscular HGB Conc 33.8 GM/DL (32-36); Mean Corpuscular Volume 91.5 FL (87-102); Mean Platelet Volume 9.7 FL (9.6-12.0); Monocytes % 7.5 % (1.7-12.7); Neutrophils % 73.3 % (38.7-73.9); Platelet Count 225 T/CUMM (130-400); Red Blood Count 3.55 MC/CUMM (3.8-5.5); Red Cell Distribution Width 13.3 % (9.3-17.3); White Blood Count 9.6 T/CUMM (4-12)
[2021-07-13 23:01] LABS: PT Patient Result 11.4 SECS (10.5-12.0)
[2021-07-13] MEDS ORDERED: ONDANSETRON 4 MG/2 ML VIAL IV PRN (23:05)
[2021-07-13] MEDS ORDERED: ZALEPLON 5 MG CAPSULE PO PRN (23:05)
[2021-07-13] MEDS ORDERED: HYDROmorphone 2 MG/1 ML VIAL IV PRN (23:10)
[2021-07-13 23:33] LABS: Bacteria,Urine Occasional /HPF (Few); Bilirubin,Urine Negative (Negative); Blood, Urine Small mg/dL (Negative); Glucose,Urine (UA) Negative (Negative); Hyaline Casts,Urine 3 /LPF (0-3); Ketones,Urine Negative (Negative); Mucus,Urine Occasional /LPF (Occasional); Nitrite,Urine Negative (Negative); Protein,Urine Negative; Squamous Epithelial Cell,Urine Occasional /HPF (0-10); Urine Appearance CLOUDY (Clear); Urine Color Yellow (Yellow); Urine Specific Gravity 1.008 (1.001-1.035)
[2021-07-14 06:37] LABS: Basophils % 0.5 % (0.0-0.8); Eosinophils # 0.1 10*3/uL (0.0-0.87); Eosinophils % 0.9 % (0.00-10.9); Hematocrit 33.6 VOL% (42.0-52.0); Hemoglobin 10.8 GM/DL (14.0-18.0); Immature Granulocytes % 0.6 %; Immature Granulocytes Absolute 0.05 #; Lymphocytes # 1.5 10*3/uL (1.4-4.0); Lymphocytes % 19.3 % (21.2-54.2); Mean Corpuscular HGB Conc 32.1 GM/DL (32-36); Mean Corpuscular Volume 95.5 FL (87-102); Mean Platelet Volume 9.3 FL (9.6-12.0); Monocytes % 9.1 % (1.7-12.7); Neutrophils % 69.6 % (38.7-73.9); Platelet Count 240 T/CUMM (130-400); Red Blood Count 3.52 MC/CUMM (3.8-5.5); Red Cell Distribution Width 14.1 % (9.3-17.3); White Blood Count 7.9 T/CUMM (4-12)
[2021-07-14 06:58] LABS: Bilirubin,Total 1.8 MG/DL (0.20-1.00); Calcium 8.9 MG/DL (8.5-10.1); Osmolality,Calculated 277.5 MOS/KG (273-304); Total Protein 6.3 G/DL (6.4-8.2)
[2021-07-14] MEDS ORDERED: INFLUENZA VIRUS VACCINE 0.5 ML SYRINGE IM ONE (07:01)
[2021-07-14] MEDS ORDERED: ALBUTEROL 2.5 MG/3 ML NEB RESP TX PRN (07:46)
[2021-07-14] MEDS ORDERED: MAGNESIUM HYDROXIDE SUSP 30 ML UDCUP PO PRN (07:46)
[2021-07-14] MEDS ORDERED: ACETAMINOPHEN 325 MG TABLET PO PRN (07:46)
[2021-07-14] MEDS: PANTOPRAZOLE 40 MG TABLET PO SCH ×2 (10:02→16:23)
[2021-07-14] MEDS ORDERED: fentaNYL 100 MCG/2 ML VIAL ONE (10:05)
[2021-07-14] MEDS ORDERED: MIDAZOLAM 2 MG/2 ML VIAL ONE (10:05)
[2021-07-14] MEDS ORDERED: BACITRACIN OINT 0.9 GM PACK TOP ONE (10:29)
[2021-07-14] MEDS ORDERED: LACTATED RINGERS 1,000 ML IV SCH (10:30)
[2021-07-14] MEDS ORDERED: ePHEDrine 50 MG/ML VIAL ONE (11:29)
[2021-07-14] MEDS ORDERED: PHENYLEPHRINE 10 MG/1 ML VIAL IV ONE (11:51)
[2021-07-14] MEDS ORDERED: PHENYLEPHRINE 1 MG/10 ML SYRINGE IV ONE (11:56)
[2021-07-14] MEDS ORDERED: LACTATED RINGERS 1,000 ML IV ONE (11:56)
[2021-07-14] MEDS ORDERED: SODIUM CHLORIDE 0.9% 250 ML IV ONE (11:56)
[2021-07-14] MEDS ORDERED: SEVOFLURANE 1 UNIT/15 MINUTE INH ONE (11:56)
[2021-07-14] MEDS ORDERED: GLYCOPYRROLATE 0.4 MG/2 ML VIAL ONE (11:56)
[2021-07-14] MEDS ORDERED: propofoL 200 MG/20 ML VIAL IV ONE (11:56)
[2021-07-14] MEDS ORDERED: LIDOCAINE 2% 5 ML VIAL ONE (11:56)
[2021-07-14] MEDS ORDERED: ROCURONIUM 50 MG/5 ML VIAL IV ONE (11:56)
[2021-07-14] MEDS ORDERED: ONDANSETRON 4 MG/2 ML VIAL ONE (11:56)
[2021-07-14] MEDS: LACTATED RINGERS 1,000 ML IV SCH ×2 (16:25→21:28)
[2021-07-14] MEDS: cefTRIAXone 1,000 MG in SODIUM CHLORIDE 0.9% 100 ML IV SCH (21:27)
[2021-07-14] MEDS: DOCUSATE SODIUM 100 MG CAPSULE PO SCH (21:28)
[2021-07-15 05:44] LABS: Basophils # 0.1 10*3/uL (0.0-0.2); Basophils % 0.6 % (0.0-0.8); Eosinophils # 0.1 10*3/uL (0.0-0.87); Eosinophils % 0.6 % (0.00-10.9); Hematocrit 23.6 VOL% (42.0-52.0); Immature Granulocytes % 0.3 %; Immature Granulocytes Absolute 0.03 #; Lymphocytes # 1.6 10*3/uL (1.4-4.0); Lymphocytes % 18.3 % (21.2-54.2); Mean Corpuscular HGB Conc 31.8 GM/DL (32-36); Mean Corpuscular Volume 97.1 FL (87-102); Mean Platelet Volume 9.9 FL (9.6-12.0); Monocytes % 13.7 % (1.7-12.7); Neutrophils % 66.5 % (38.7-73.9); Red Cell Distribution Width 14.5 % (9.3-17.3)
[2021-07-15 05:46] LABS: Red Blood Count 2.43 MC/CUMM (3.8-5.5)
[2021-07-15 05:47] LABS: Hemoglobin 7.5 GM/DL (14.0-18.0); Platelet Count 187 T/CUMM (130-400)
[2021-07-15 05:56] LABS: Calcium 7.9 MG/DL (8.5-10.1); Osmolality,Calculated 277.5 MOS/KG (273-304); Potassium 3.7 MMOL/L (3.5-5.1); Risk Ratio 2.44; Thyroid Stimulating Hormone 1.09 uIU/ml (0.358-3.74); VLDL Cholesterol 16.6 MG/DL
[2021-07-15] MEDS ORDERED: SODIUM CHLORIDE 0.9% 1,000 ML IV PRN (07:19)
[2021-07-15 08:01] LABS: % Iron Saturation 16.8 % (18-50); Ferritin 95.2 ng/mL (26-388)
[2021-07-15] MEDS: PANTOPRAZOLE 40 MG TABLET PO SCH (08:28)
[2021-07-15] MEDS: DOCUSATE SODIUM 100 MG CAPSULE PO SCH ×2 (08:28→22:32)
[2021-07-15] MEDS ORDERED: APIXABAN 2.5 MG TABLET PO SCH (09:00)
[2021-07-15 09:12] LABS: Folate > 24.00 NG/ML (5.38-24.0); Vitamin B12 691 PG/ML (211-911)
[2021-07-15] MEDS ORDERED: TEMAZEPAM 15 MG CAPSULE PO PRN (15:17)
[2021-07-15] MEDS: cefTRIAXone 1,000 MG in SODIUM CHLORIDE 0.9% 100 ML IV SCH (20:00)
[2021-07-15] MEDS: OXYBUTYNIN XL 15 MG TABLET PO SCH (21:32)
[2021-07-15] MEDS: IMIPRAMINE 25 MG TABLET PO SCH (22:34)
[2021-07-15] MEDS: TIMOLOL 0.5% OPH SOLN 5 ML BOTTLE LEFT EYE SCH (22:35)
[2021-07-16 05:30] LABS: Basophils % 0.4 % (0.0-0.8); Eosinophils # 0.2 10*3/uL (0.0-0.87); Eosinophils % 3.6 % (0.00-10.9); Hematocrit 24.7 VOL% (42.0-52.0); Hemoglobin 7.8 GM/DL (14.0-18.0); Immature Granulocytes % 0.8 %; Immature Granulocytes Absolute 0.04 #; Lymphocytes # 0.8 10*3/uL (1.4-4.0); Lymphocytes % 16.5 % (21.2-54.2); Mean Corpuscular HGB Conc 31.6 GM/DL (32-36); Mean Corpuscular Volume 97.6 FL (87-102); Mean Platelet Volume 9.2 FL (9.6-12.0); Monocytes % 11.5 % (1.7-12.7); Neutrophils % 67.2 % (38.7-73.9); Platelet Count 120 T/CUMM (130-400); Red Blood Count 2.53 MC/CUMM (3.8-5.5)
[2021-07-16 05:52] LABS: Calcium 8.3 MG/DL (8.5-10.1); Osmolality,Calculated 275.5 MOS/KG (273-304); Potassium 3.8 MMOL/L (3.5-5.1)
[2021-07-16] MEDS ORDERED: SODIUM CHLORIDE 0.9% 1,000 ML IV PRN (07:11)
[2021-07-16] MEDS: OXYBUTYNIN XL 15 MG TABLET PO SCH ×2 (08:57→20:41)
[2021-07-16] MEDS: FERROUS SULFATE 325 MG TABLET PO SCH (08:58)
[2021-07-16] MEDS: DOCUSATE SODIUM 100 MG CAPSULE PO SCH ×2 (08:58→20:41)
[2021-07-16] MEDS: PANTOPRAZOLE 40 MG TABLET PO SCH (08:58)
[2021-07-16] MEDS: TIMOLOL 0.5% OPH SOLN 5 ML BOTTLE LEFT EYE SCH ×2 (09:05→20:41)
[2021-07-16] MEDS: IMIPRAMINE 25 MG TABLET PO SCH (20:40)
[2021-07-16] MEDS: ZINC OXIDE PASTE 113 GM TUBE TOP SCH (20:41)
[2021-07-16] MEDS: cefTRIAXone 1,000 MG in SODIUM CHLORIDE 0.9% 100 ML IV SCH (23:35)
[2021-07-17] MEDS: FERROUS SULFATE 325 MG TABLET PO SCH (08:14)
[2021-07-17] MEDS: PANTOPRAZOLE 40 MG TABLET PO SCH (08:14)
[2021-07-17] MEDS: DOCUSATE SODIUM 100 MG CAPSULE PO SCH (08:14)
[2021-07-17] MEDS: OXYBUTYNIN XL 15 MG TABLET PO SCH (08:14)
[2021-07-17] MEDS: ZINC OXIDE PASTE 113 GM TUBE TOP SCH (08:14)
[2021-07-17] MEDS: TIMOLOL 0.5% OPH SOLN 5 ML BOTTLE LEFT EYE SCH (08:15)
[2021-07-17 09:05] LABS: Basophils % 0.4 % (0.0-0.8); Eosinophils # 0.2 10*3/uL (0.0-0.87); Eosinophils % 4.4 % (0.00-10.9); Hematocrit 34.6 VOL% (42.0-52.0); Hemoglobin 11.4 GM/DL (14.0-18.0); Immature Granulocytes % 0.9 %; Immature Granulocytes Absolute 0.04 #; Lymphocytes # 0.6 10*3/uL (1.4-4.0); Lymphocytes % 12.6 % (21.2-54.2); Mean Corpuscular HGB Conc 32.9 GM/DL (32-36); Mean Corpuscular Volume 94.3 FL (87-102); Mean Platelet Volume 9.1 FL (9.6-12.0); Monocytes % 7.7 % (1.7-12.7); Platelet Count 141 T/CUMM (130-400); Red Blood Count 3.67 MC/CUMM (3.8-5.5); Red Cell Distribution Width 16.1 % (9.3-17.3); White Blood Count 4.5 T/CUMM (4-12)
[2021-07-17 09:27] LABS: Calcium 8.6 MG/DL (8.5-10.1); Osmolality,Calculated 272.8 MOS/KG (273-304); Potassium 3.8 MMOL/L (3.5-5.1)
[2021-07-17 12:02] VITALS: BP 119/55
== END 2021-07-17 11:46 | disposition home health service (06) | DRG 480 ==
LOC: EDUNIT# → EDBD → N.ED 20:10 → N.EDINP 23:05 → SUATTDRO 23:05 → N.3E 07-14 02:18
PROVIDERS: ADMIT Internal Medicine; ATTEND Phlebology